=== PATIENT | female | born 1995 | race Caucasian/White ===

== ENCOUNTER 2018-01-27 22:20 | Inpatient (IN) | payer BC ==
[~2018-01-27] VITALS: Ht 162.6 cm; Wt 68.0 kg
[~2018-01-27 22:20] MED LIST: CALC-515 PO; DOXY1TAB3 PO; PNV1COMB5
[2018-01-27] MEDS ORDERED: OXYTOCIN 30 UNIT/D5LR 500 ML 500 ML IV PRN (22:22)
[2018-01-27] MEDS ORDERED: LR(*) 1000 ML BAG 1,000 ML IV PRN (22:22)
[2018-01-27] MEDS ORDERED: FAMOTIDINE(*) 20MG/50ML PREMIX 50 ML IVPB PRN (22:22)
[2018-01-27] MEDS ORDERED: ceFAZolin(*) 2GM/D5W 50ML 50 ML IVPB PRN (22:22)
[2018-01-27] MEDS ORDERED: LIDOCAINE/SOD BICARB 8.4% SYR SC PRN (22:25)
[2018-01-27] MEDS ORDERED: fentaNYL CITR 100 MCG/2 ML AMP IVP PRN (22:25)
[2018-01-27] MEDS ORDERED: LIDOCAINE 1% LOCAL 300 MG/30ML INJ PRN (22:25)
[2018-01-27] MEDS ORDERED: TERBUTALINE SULF 1 MG/ML VIAL SUBQ PRN (22:25)
[2018-01-27] MEDS ORDERED: DLR(*) 1000 ML BAG 1,000 ML IV PRN (22:25)
[2018-01-27] MEDS ORDERED: cefOXitin/DEX(*) 2GM/50ML PREM 50 ML IVPB PRN (22:25)
[2018-01-27] MEDS ORDERED: ACETAMINOPHEN 500 MG TAB PO PRN (22:25)
[2018-01-27] MEDS ORDERED: METOCLOPRAMIDE 10 MG/2 ML SDV IVP PRN (22:25)
[2018-01-27] MEDS ORDERED: ZOLPIDEM TARTRATE 5 MG TAB PO PRN (22:25)
[2018-01-27] MEDS ORDERED: ONDANSETRON 4 MG/2 ML VIAL IVP PRN (22:25)
[2018-01-27] MEDS ORDERED: DINOPROSTONE 10 MG INSERT PV ONE (22:25)
[2018-01-27 23:00] VITALS: BP 123/79; Ht 162.6 cm; Wt 68.0 kg
[2018-01-27] MEDS: MISOPROSTOL 25 MCG CAP PV PRN (23:24)
[2018-01-27 23:28] LABS: PLATELET COUNT, AUTOMATED 205 K/uL (150-450)
[2018-01-28] MEDS: MISOPROSTOL 25 MCG CAP PV PRN (03:43)
--- NOTE | 2018-01-28 08:03 | History & Physical ---
History of Present Illness Age of Patient: 22 : 1 Para or TPAL: 0000 EDC per LMP: Jan 24, 2018 Estimated Gestational Age: 40.4 Chief Complaint IOL History of Present Illness The patient is a 22 year old 1 para 0000 admitted at 40 4/7 weeks estimated gestational age with an estimated date of delivery 01/24/18. Patient is admitted for IOL for post term. No vaginal bleeding. Good movement and occasional contractions. She was evaluated for active labor. She had an uncomplicated course. Her record was reviewed. History Allergies: Coded Allergies: Sulfa (Sulfonamide Antibiotics) (Unverified Allergy, Unknown, 01/27/18) Med Rec Home Meds Reported Medications Pnv #116/Iron Fumarate/Fa/Dha (EXPECTA COMBO PACK) 1 Each Combo..pkg 12/29/17 Discontinued Reported Medications Doxylamine/Pyridoxine Hcl (ROQUE CARLOS 10-10 MG TABLET) 1 Each Tablet.dr, 1 EACH PO 12/29/17 Calcium Carbonate (TUMS) 200 Mg Tab.chew, 200 MG PO, TAB.CHEW 12/29/17 Exam General Exam Vital Signs Vital Signs Date Time Temp Pulse Resp B/P (MAP) Pulse Ox O2 Delivery O2 Flow Rate FiO2 01/27/18 23:00 99.0 91 16 123/79 (94) 96 Room Air Cardiovascular: Regular Rate and Rhythm Respiratory: Clear to Auscultation Abdomen: Gravid - Non-Tender Extremities: No Edema Cervical Dialation: 2 Cervical Effacement (%): 90 Cervical Consistency: Soft Cervical Position: Mid Station: -1 Presentation: Vertex Uterine Contractions(Q min): 3 Uterine Contraction Strength: Moderate Fetus Heart Tones: 120 Heart Tone Variabilty: Moderate FHT Accelerations: 15X15 FHT Category: I Medical Decision Making Data Points Result Diagram: 01/27/18 1523 Assessment and Plan Problems: (1) Post term over 40 weeks Assessment & Plan: cytotec placed x 2 jelani regularly. will monitor for change Copies to: JAZMINE GARBER MD, JOHN MD Jan 28, 2018 08:03
[2018-01-28] MEDS ORDERED: FENTANYL/ROPIVACAINE 100 ML BAG EPI PRN (11:05)
[2018-01-28] MEDS ORDERED: EPIDURAL KEYS XX PRN (11:05)
[2018-01-28] MEDS ORDERED: fentaNYL CITR 100 MCG/2 ML AMP IT PRN (11:05)
[2018-01-28] MEDS ORDERED: ePHEDrine 25 MG/5 ML DISP.SYR IVP PRN (11:05)
[2018-01-28] MEDS ORDERED: BUPIVACAINE 0.25% MPF INJ EPI PRN (11:05)
[2018-01-28] MEDS ORDERED: BUPIVACAINE 0.5% INJ 30ML VIAL EPI PRN (11:05)
[2018-01-28] MEDS ORDERED: LIDO/EPI 2% MPF 1:200,000 20ML EPI PRN (11:05)
[2018-01-28] MEDS ORDERED: LIDOCAINE/PF 2% 200MG/10ML AMP 200 MG/10 ML AMPUL EPI PRN (11:05)
[2018-01-28] MEDS ORDERED: METHYLERGONOVINE MAL 0.2MG/ML ONE (12:38)
--- NOTE | 2018-01-28 12:55 | Labor Progress Note ---
Labor Subjective Progress Notes Subjective COMFORTABLE WITH EPIDURAL Vaginal Discharge/Fluid: Clear Fluid Labor Pain: Comfortable Labor Objective Vital Signs Vital Signs Date Time Temp Pulse Resp B/P (MAP) Pulse Ox O2 Delivery O2 Flow Rate FiO2 01/27/18 23:00 99.0 91 16 123/79 (94) 96 Room Air Cervical Dialation: 10 Cervical Effacement (%): 100 Cervical Consistency: Soft Cervical Position: Anterior Station: +3 Presentation: Vertex Uterine Contractions(Q min): 3 Fetus Heart Tones: 120 Heart Tone Variabilty: Moderate Other Result Diagram: 01/27/18 7240 Assessment and Plan Problems: (1) Post term over 40 weeks Assessment & Plan: COMPLETE WILL PUSH, ANTICIPATED VAGINAL DELIVERY JAZMINE GARBER MD Jan 28, 2018 12:55
[2018-01-28] MEDS ORDERED: GLYCERIN/WITCH HAZEL LEAF 1 PK TP PRN (13:50)
[2018-01-28] MEDS ORDERED: LANOLIN OINT 7 GM TUBE TP PRN (13:50)
[2018-01-28] MEDS ORDERED: BENZOCAINE 20% 60 ML BTL TP PRN (13:50)
[2018-01-28] MEDS ORDERED: MAGNESIUM HYDROXIDE* 30ML UDCP PO PRN (13:50)
[2018-01-28] MEDS ORDERED: ACETAMINOPHEN 325 MG TAB PO PRN (13:50)
[2018-01-28] MEDS ORDERED: HYDROCORTISONE 2.5% CR 30GM TB PR PRN (13:50)
[2018-01-28] MEDS ORDERED: HYDROmorphone HCL 2 MG TAB PO PRN (13:50)
--- NOTE | 2018-01-28 13:51 | OB Delivery Note ---
Delivery Note Vaginal Delivery Type: Spont. Vaginal Delivery Delivery Date: Jan 28, 2018 Delivery Time: 13:25 Estimated Gestational Age(wks): 40.4 Delivery Anesthesia: Epidural, Local Infant Sex: Male Weight (gms): 3600 Dime Box Apgars: 1 Minute (9), 5 Minute (9) Repair Needed: Laceration, Superficial, Labial Estimated Blood Loss: 400 Notes: CYTOTEC INDUCTION, RECEIVED 2 25 MICROGRAM DOSES, SROM, RECEIVED EPIDURAL, PROGRESSED TO COMPLETE PUSHED EFFECTIVELY. DELIVERED OVER INTACT PERINEUM, NO COMPLICATIONS, LABIAL LACERATIONS REPAIRED WITH 3-0 VICRYL. Cpas in Attendence: No Copies to: JAZMINE GARBER MD, JOHN MD Jan 28, 2018 13:51
[2018-01-28] MEDS ORDERED: LIDOCAINE 1% LOCAL 300 MG/30ML 30 ML ONE (14:05)
--- NOTE | 2018-01-28 14:21 | Anesthesia OB Pre-Anes Eval ---
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, Other Hx Anesthesia Reactions: No Hx Family Anesthesia Reaction: No Home Meds Reported Medications Pnv #116/Iron Fumarate/Fa/Dha (EXPECTA COMBO PACK) 1 Each Combo..pkg 12/29/17 Discontinued Reported Medications Doxylamine/Pyridoxine Hcl (DICLEGIS DR 10-10 MG TABLET) 1 Each Tablet.dr, 1 EACH PO 12/29/17 Calcium Carbonate (TUMS) 200 Mg Tab.chew, 200 MG PO, TAB.CHEW 12/29/17 Allergies: Coded Allergies: Sulfa (Sulfonamide Antibiotics) (Unverified Allergy, Unknown, 01/27/18) Anesthesia OB ROS Neurological: No migraines/headaches, No seizures, No neuropathy ENT: Denies Tooth caps, Denies Loose teeth, Denies Chipped teeth, Denies Dentures, Denies Bridges, Denies Retainers, Denies Veneers, Denies Implants, Denies Tongue ring, Other Pulmonary: No asthma, No smoker (pks/day/yrs) Airway Class: ll Cardiovascular ROS: No edema, No arrhythmia GI ROS: clear liquids Last Solids Date: Jan 27, 2018 Last Solids Time: 22:00 ROS: No Herpes, No STD(s), No Liver Disease, No Renal Disease Endocrine ROS: No diabetes, No gestational diabetes, No thyroid disorder Musculoskeletal ROS: No low back pain, No low back injury, No scoliosis ASA Classification: 2 Assessment and Plan Anesthesia Plan: CSE Assessment Past Medical, Surgical, Family and Obstetric Histories reviewed. Please see ACOG chart. Epidural anesthesia risks, complications and benefits explained to patient's satisfaction for labor and vaginal delivery and/or section. General anesthesia risks and benefits explained to patient's satisfaction. Pt. extremely verbal and restless during contractions. Offered IV medication for pain so that pt. is able to sit and maintain position during epidural. Pt. agreeable to IV Fentenyl 50 mcgs after explanation of use given to pt. Questions invited and answered. CARMEN ARMANDO CRNA Jan 28, 2018 14:21
--- NOTE | 2018-01-28 14:31 | Procedure Note ---
Anesthetic Placement Note Anesthesia Plan: CSE Permit for Anesthesia Signed: Yes Anesthesia Technique: Patient Sitting Anesthesia Prep: Chlorhexidine Interspace: L 3-4 Local Anesthetic: 1% Lidocaine, 25 Gauge Needle Amount Local - cc's: 2 Anesthesia Needle: 17g Touhy/Schliff Anesthesia Attempts: 1 Loss of Resistance: Air Depth of DEN (cm): 4 Epidural Needle Placement: No CSF, No Blood, No Parasthesia Intrathecal Needle: 27 Gauge Pencan Cerebral Spinal Fluid: Yes, Clear Catheter Insertion (cm): 7 Catheter Type: Marquez - Spring Wound Epidural Dressing: Tegaderm, Tape, Adhesive Elsie Anesthesia Tray: Lot Number ([id number]), Expiration Date (2018-09-15), Reference Number ([id number]) Anesthesia Medications: Intrathecal Dose: mcg Fentanyl (15), mg Marcaine MPF (1.75), Time (1148) Epidural Test Dose: 1.5 Lido/Epi (1:200,000), Dose - mL (3), Time (1200), Negative Epidural Loading Dose: 0.2% Ropivicaine, With Fentanyl 2mcg/ml, Dose - ml (5), Time (1202) Complications: None Comment: Pt. became more relaxed after IV Fentenyl. Able to sit still for epidural. Vital signs stable. After intrathecal medication pt. states she is "still hurting". Unable to tell by facial expression, when pt. is having a contraction. Immediate test dose and bolus of drip given. CARMEN ARMANDO CRNA Jan 28, 2018 14:31
--- NOTE | 2018-01-28 14:37 | Anesthesia Progress Note ---
Progress/Maintenance Anesthesia Note Date: Jan 28, 2018 Anesthesia Note Time: 12:25 Pain Intensity: 1 Dilatation: 8 Assessment and Plan Assessment No further medication given as pt. does not feel contractions now, "Feel some pressure". Anesthesia Stop Day: Jan 28, 2018 CARMEN ARMANDO CRNA Jan 28, 2018 14:37
--- NOTE | 2018-01-28 14:40 | Anesthesia Progress Note ---
Progress/Maintenance Anesthesia Note Date: Jan 28, 2018 Anesthesia Note Time: 13:00 Pain Intensity: 0 Assessment and Plan Assessment BP low, Pt. feeling nauseated and lightheaded. Assisted to turn off of her back. IV Ephedrine given by RN and episode quickly resolved. CARMEN ARMANDO CRNA Jan 28, 2018 14:40
--- NOTE | 2018-01-28 14:48 | Anesthesia Progress Note ---
Progress/Maintenance Anesthesia Note Date: Jan 28, 2018 Anesthesia Note Time: 13:30 Pain Intensity: 0 Dilatation: 10 Assessment and Plan Assessment No further medication was given per epidural. Excellent tolerance of delivery and repair work, was able to push well. Patient instructed the first ambulation is to be with help of nursing staff. Instructed to preform deep knee bends at bedside before walking. Anesthesia Stop Day: Jan 28, 2018 Anesthesia Stop Time: 13:30 Epidural Catheter Removal: Yes, Removed by: (Vannessa Anderson CRNA) Removal Date: Jan 28, 2018 Removal Time: 14:45 CARMEN ANDERSON CRNA Jan 28, 2018 14:48
[2018-01-28] MEDS: IBUPROFEN 800 MG TAB PO SCH ×2 (15:00→22:33)
[2018-01-28 16:00] VITALS: BP 127/78
[2018-01-28] MEDS ORDERED: IBUP800T37 PO (17:11)
[2018-01-28] MEDS ORDERED: HYDR2TAB4 PO (17:11)
--- NOTE | 2018-01-28 17:13 | OB/GYN Discharge Summary ---
Discharge Summary Reason for Hosp/Final Diag: (1) Post term over 40 weeks Status: Resolved (2) care following vaginal delivery Hospital Course & Plan: INDUCTION OF LABOR, VAGINAL DELIVERY, ON DAY 1, Pain controlled, Tolerating diet and activity. Baby . Normal lochia. Lates Vital Signs Vital Signs Date Time Temp Pulse Resp B/P (MAP) Pulse Ox O2 Delivery O2 Flow Rate FiO2 01/27/18 23:00 99.0 91 16 123/79 (94) 96 Room Air Weight (Pounds): 150 Result Diagram: 01/27/18 1606 Condition: Improved Discharge: Home, Self Group Home Meds Active Scripts Ibuprofen (IBUPROFEN) 800 Mg Tablet, 1 TAB PO Q8H, #30 TAB 0 Refills Take with food every 8 hours. Prov:JAZMINE MURPHY MD 01/28/18 Hydromorphone Hcl (HYDROMORPHONE HCL) 2 Mg Tablet, 2-4 MG PO Q4H for PAIN, #20 TAB 0 Refills Prov:JAZMINE MURPHY MD 01/28/18 Reported Medications Pnv #116/Iron Fumarate/Fa/Dha (EXPECTA COMBO PACK) 1 Each Combo..pkg 12/29/17 Discontinued Reported Medications Doxylamine/Pyridoxine Hcl (ROQUE CARLOS 10-10 MG TABLET) 1 Each Tablet.dr, 1 EACH PO 12/29/17 Calcium Carbonate (TUMS) 200 Mg Tab.chew, 200 MG PO, TAB.CHEW 12/29/17 Follow up with: Dr. Murphy [phone] Follow up in: 6 wks PP or PO Discharge Diet: As Tolerates Discharge Activity: Pelvic Rest Copies to: JAZMINE MURPHY MD, JOHN MD Jan 28, 2018 17:13
[2018-01-28 19:18] VITALS: BP 122/79
[2018-01-28] MEDS: DOCUSATE CALCIUM 240 MG CAP PO SCH (20:58)
[2018-01-28 23:27] VITALS: BP 122/74
[2018-01-29 03:56] VITALS: BP 117/80
[2018-01-29 07:30] VITALS: BP 128/70
[2018-01-29] MEDS: IBUPROFEN 800 MG TAB PO SCH ×2 (08:33→16:44)
[2018-01-29] MEDS: DOCUSATE CALCIUM 240 MG CAP PO SCH (09:00)
[2018-01-29] MEDS ORDERED: MULTIVITAMINS (PRENATAL) TAB PO SCH (09:00)
--- NOTE | 2018-01-29 09:51 | OB/GYN Progress Note ---
OB Subjective Progress Notes Subjective Doing well. Pain controlled and ambulating well. Voiding well. No problems. GI: NEG Nausea : Voiding Well Pain: Mild OB Objective Physical Exam Vital Signs Date Time Temp Pulse Resp B/P (MAP) Pulse Ox O2 Delivery O2 Flow Rate FiO2 01/29/18 07:30 Room Air 01/29/18 07:30 98.3 78 18 128/70 (89) 01/27/18 23:00 96 Cardiovascular: Normal Rhythm & Peripheral Pulses, Regular Rate and Rhythm Respiratory: No Respiratory Distress, Clear to Auscultation Abdomen: Soft, Non-Tender, Non-Distended Extremities: No Cyanosis,Clubbing or Edema, No Edema Integumentary: Skin Intact without Lesions or Rash Psychological: Alert & Oriented X3, Appropriate Mood & Affect Result Diagram: 01/29/18 0615 Assessment and Plan PHOTOGRAPHIC PRINTER Plan: Routine Post- Care, Discharge Home Today Problems: (1) Post term over 40 weeks Status: Resolved (2) care following vaginal delivery Assessment & Plan: Home today. Reviewed instructions and questions answered. SAMEERA WELCH MD Jan 29, 2018 09:51
--- NOTE | 2018-01-29 10:15 | Anesthesia Post Eval Note ---
Anesthesia Post Eval Note Vital Signs Date Time Temp Pulse Resp B/P (MAP) Pulse Ox O2 Delivery O2 Flow Rate FiO2 01/29/18 07:30 Room Air 01/29/18 07:30 98.3 78 18 128/70 (89) 01/27/18 23:00 96 Pt able to participate in Eval: Yes Cardiovascular Status: Satisfactory Respiratory Status: Satisfactory Pain Managment: Satisfactory PO Nausea/Vomiting: Satisfactory Temperature Management: Satisfactory Mental Status: Satisfactory, Alert, Oriented X3 Post-Op Hydration Status: Satisfactory, Tolerating PO Well, Voiding w/o Difficulty Anesthesia Type: CSE Anesthesia Tolerance: Tolerated procedure well without apparent anesthetic complications. LP site clear, no redness or edema. Denies headache or any residual paresthesia. Vital Signs Stable, Patient comfortable and condition stable. CARMEN ARMANDO CRNA Jan 29, 2018 10:15
[2018-01-29 11:00] VITALS: BP 121/81
[2018-01-29 15:00] VITALS: BP 129/78
[2018-01-29 17:00] VITALS: BP 122/76
[2018-01-30] MEDS ORDERED: DIPHTH/TETANUS/ACEL. PERTUSSIS IM ONLY ONE (09:00)
[2018-01-30] MEDS ORDERED: MEASLES,MUMP,RUBELLA VAC 0.5ML SUBQ ONE (09:00)
[2018-01-30] MEDS ORDERED: INFLUENZA VIRUS VAC 0.5 ML SYR IM ONLY ONE (09:00)
== END 2018-01-29 17:30 | disposition home or self-care (01) | DRG 775 ==
LOC: UNDOADMIN 22:20 → OB 22:20 → UNDODISIN 01-29 17:30
PROVIDERS: ADMIT Obstetrics & Gynecology; ATTEND Student in an Organized Health Care Education/Training Program
PROC: 10E0XZZ Delivery of Products of Conception, External Approach (ICD-10-PCS; principal; 2018-01-28)
PROC: 0HQ9XZZ Repair Perineum Skin, External Approach (ICD-10-PCS; 2018-01-28)
PROC: 3E0P7VZ Introduction of Hormone into Female Reproductive, Via Natural or Artificial Opening (ICD-10-PCS; 2018-01-28)
DX: O48.0 Post-term pregnancy (principal); O70.0 First degree perineal laceration during delivery; Z37.0 Single live birth; Z88.2 Allergy status to sulfonamides; Z3A.40 40 weeks gestation of pregnancy
CPT/HCPCS: 36415; 84112; 85025; 85027; 86850; 86900; 86901; J2001; J3010; S0020